=== PATIENT | female | born 1955 | race Caucasian/White ===

== ENCOUNTER → 2016-11-10 | Outpatient (CLI) | payer MEDICARE, OTHER | LOC: LAB 15:54 | PROVIDERS: ATTEND Internal Medicine | DX: D89.9 Disorder involving the immune mechanism, unspecified (principal); N39.0 Urinary tract infection, site not specified; Z94.0 Kidney transplant status ==

== ENCOUNTER → 2016-11-24 | Outpatient (CLI) | payer MEDICARE, OTHER | LOC: LAB.O 16:21 | PROVIDERS: ATTEND Internal Medicine | DX: D89.9 Disorder involving the immune mechanism, unspecified (principal); N39.0 Urinary tract infection, site not specified; Z94.0 Kidney transplant status ==

== ENCOUNTER → 2016-12-29 | Outpatient (CLI) | payer MEDICARE, OTHER | END | disposition home or self-care (01) | LOC: LAB.O 16:23 | PROVIDERS: ATTEND Internal Medicine | DX: N39.0 Urinary tract infection, site not specified (principal) ==

== ENCOUNTER → 2017-01-08 | Outpatient (CLI) | payer MEDICARE, OTHER | LOC: LAB.O 16:22 | PROVIDERS: ATTEND Internal Medicine | DX: N39.0 Urinary tract infection, site not specified (principal); D89.9 Disorder involving the immune mechanism, unspecified; Z94.0 Kidney transplant status ==

== ENCOUNTER → 2017-02-21 | Outpatient (CLI) | payer MEDICARE, OTHER | END | disposition home or self-care (01) | LOC: LAB 02-16 16:46 | PROVIDERS: ATTEND Internal Medicine | DX: N39.0 Urinary tract infection, site not specified (principal) ==

== ENCOUNTER → 2017-03-12 | Outpatient (CLI) | payer MEDICARE, OTHER | END | disposition home or self-care (01) | LOC: LAB.O 07:13 | PROVIDERS: ATTEND Internal Medicine | DX: D89.9 Disorder involving the immune mechanism, unspecified (principal) ==

== ENCOUNTER → 2017-03-23 | Outpatient (CLI) | payer MEDICARE, OTHER | LOC: LAB.O 09:37 | PROVIDERS: ATTEND Internal Medicine | DX: D89.9 Disorder involving the immune mechanism, unspecified (principal); Z94.0 Kidney transplant status ==

== ENCOUNTER → 2017-04-04 | Outpatient (CLI) | payer MEDICARE, OTHER | END | disposition home or self-care (01) | LOC: LAB.O 07:56 | PROVIDERS: ATTEND Internal Medicine | DX: D89.9 Disorder involving the immune mechanism, unspecified (principal); Z94.0 Kidney transplant status ==

== ENCOUNTER → 2017-04-17 | Outpatient (CLI) | payer MEDICARE, OTHER | END | disposition home or self-care (01) | LOC: LAB.O 10:20 | PROVIDERS: ATTEND Student in an Organized Health Care Education/Training Program | DX: D89.9 Disorder involving the immune mechanism, unspecified (principal); Z94.0 Kidney transplant status ==

== ENCOUNTER → 2017-05-25 | Outpatient (CLI) | payer MEDICARE, OTHER | LOC: LAB.O 09:53 | PROVIDERS: ATTEND Internal Medicine | DX: D89.9 Disorder involving the immune mechanism, unspecified (principal); Z94.0 Kidney transplant status ==

== ENCOUNTER → 2017-06-22 | Outpatient (CLI) | payer MEDICARE, OTHER | END | disposition home or self-care (01) | LOC: LAB.O 14:35 | PROVIDERS: ATTEND Student in an Organized Health Care Education/Training Program | DX: D63.1 Anemia in chronic kidney disease (principal); Z94.0 Kidney transplant status; I10 Essential (primary) hypertension ==

== ENCOUNTER → 2017-06-29 | Outpatient (CLI) | payer MEDICARE, OTHER | LOC: LAB.O 10:25 | PROVIDERS: ATTEND Internal Medicine | DX: D89.9 Disorder involving the immune mechanism, unspecified (principal); Z94.0 Kidney transplant status ==

== ENCOUNTER → 2017-08-03 | Outpatient (CLI) | payer MEDICARE, OTHER | END | disposition home or self-care (01) | LOC: LAB.O 10:00 | PROVIDERS: ATTEND Internal Medicine | DX: Z94.0 Kidney transplant status (principal) ==

== ENCOUNTER → 2017-09-03 | Outpatient (CLI) | payer MEDICARE, OTHER | END | disposition home or self-care (01) | LOC: LAB.O 15:08 | PROVIDERS: ATTEND Internal Medicine | DX: N39.0 Urinary tract infection, site not specified (principal); Z94.0 Kidney transplant status ==

== ENCOUNTER → 2017-09-25 | Outpatient (CLI) | payer MEDICARE, OTHER | END | disposition home or self-care (01) | LOC: LAB.O 15:16 | PROVIDERS: ATTEND Student in an Organized Health Care Education/Training Program | DX: E03.9 Hypothyroidism, unspecified (principal); N39.0 Urinary tract infection, site not specified ==

== ENCOUNTER → 2017-11-14 | Outpatient (CLI) | payer MEDICARE, OTHER | END | disposition home or self-care (01) | LOC: LAB.O 16:18 | DX: N39.0 Urinary tract infection, site not specified (principal) ==

== ENCOUNTER → 2018-01-02 | Outpatient (CLI) | payer MEDICARE, OTHER | LOC: LAB.O 14:43 | PROVIDERS: ATTEND Internal Medicine Nephrology | DX: N39.0 Urinary tract infection, site not specified (principal); D89.9 Disorder involving the immune mechanism, unspecified; Z94.0 Kidney transplant status ==

== ENCOUNTER → 2018-01-18 | Outpatient (CLI) | payer MEDICARE, OTHER | LOC: LAB.O 16:01 | PROVIDERS: ATTEND Internal Medicine Nephrology | DX: N39.0 Urinary tract infection, site not specified (principal); D89.9 Disorder involving the immune mechanism, unspecified; Z94.0 Kidney transplant status ==

== ENCOUNTER → 2018-02-01 | Outpatient (CLI) | payer MEDICARE, OTHER | LOC: LAB.O 15:05 | PROVIDERS: ATTEND Student in an Organized Health Care Education/Training Program | DX: D70.2 Other drug-induced agranulocytosis (principal); B25.9 Cytomegaloviral disease, unspecified; I10 Essential (primary) hypertension; Z41.8 Encounter for other procedures for purposes other than remedying health state; Z94.0 Kidney transplant status ==

== ENCOUNTER → 2018-06-04 | Outpatient (CLI) | payer MEDICARE, OTHER | LOC: LAB.O 16:11 | PROVIDERS: ATTEND Student in an Organized Health Care Education/Training Program | DX: I10 Essential (primary) hypertension (principal); E55.9 Vitamin D deficiency, unspecified; N25.81 Secondary hyperparathyroidism of renal origin; N39.0 Urinary tract infection, site not specified; D63.1 Anemia in chronic kidney disease; N18.9 Chronic kidney disease, unspecified; Z94.0 Kidney transplant status ==